=== PATIENT | female | born 1935 | race Caucasian/White ===

== ENCOUNTER 2016-12-02 11:09 | Day surgery (SDC) | payer MEDICARE ==
--- NOTE | ~2016-12-02 | EGD ---
EGD REPORT [facility] [address] [address] NAME: YAO VASQUES : 31 STATUS : REG [facility]#: [id number] AGE: 81 ADM/REG DATE : 12/02/16 MR#: [id number] REPORT SERV DATE: 12/02/16 DICTATED BY: ROZINA VILLATORO DATE: 12/02/16 REPORT STATUS : Draft [facility]: [facility] DATE: 12/02/16 Pulmonology Patient Name: Yao Vasques. Procedure Date: 12/02/2016 2:05 PM Date of : 1935 Attending MD: CHARLES VILLATORO MD Procedure Date No Time: 12/02/2016 Procedure: EBUS Indications: RUL lung lesion, mediastinal adenopathy, history of adenocarcinoma s/p SBRT Providers: CHARLES VILLATORO MD Referring MD: ZORAN TORRES MD Medicines: Lidocaine 2% 20 mL Complications: No immediate complications Procedure: Pre-Anesthesia Assessment: - A History and Physical has been performed. Patient meds and allergies have been reviewed. The risks and benefits of the procedure and the sedation options and risks were discussed with the patient. All questions were answered and informed consent was obtained. Patient identification and proposed procedure were verified prior to the procedure by the physician and the nurse in the pre-procedure area in the procedure room. Mental Status Examination: normal. Respiratory Examination: clear to auscultation. CV Examination: normal and RRR, no murmurs, no S3 or S4. ASA Grade Assessment: IV - A patient with severe systemic disease that is a constant threat to life. After reviewing the risks and benefits, the patient was deemed in satisfactory condition to undergo the procedure. The anesthesia plan was to use general anesthesia. Immediately prior to administration of medications, the patient was re-assessed for adequacy to receive sedatives. The heart rate, respiratory rate, oxygen saturations, blood pressure, adequacy of pulmonary ventilation, and response to care were monitored throughout the procedure. The physical status of the patient was re-assessed after the procedure. After obtaining informed consent, the Bronchoscope was introduced through the mouth, via the endotracheal tube (the patient was intubated for the procedure) and advanced to the tracheobronchial tree. the BF [id number] was introduced through the mouth, via the endotracheal tube (the patient was intubated for the procedure) and advanced to the tracheobronchial tree. The procedure was accomplished without difficulty. The EGD REPORT [address] [address] NAME: YAO VASQUES : [birth year] STATUS : REG [facility] PAT#: [id number] AGE: 81 ADM/REG DATE : 12/02/16 MR#: [id number] REPORT SERV DATE: 12/02/16 DICTATED BY: ROZINA VILLATORO DATE: 12/02/16 REPORT STATUS : Draft TRANSCRIBED BY: [facility] DATE: 12/02/16 patient tolerated the procedure well. Findings: The endotracheal tube is in good position. The visualized portion of the trachea is of normal caliber. The caden is sharp. The tracheobronchial tree was examined to at least the first subsegmental level. Bronchial mucosa and anatomy are normal; there are no endobronchial lesions, and no secretions. EBUS TBNA of lymph node level 2R x 4 passes for cytology EBUS TBNA of lymph node level 4R x 10 passes for cytology EBUS TBNA of lymph node level 11R x 4 passes for cytology Bronchoalveolar lavage was performed in the right upper lobe of the lung and sent for routine cytology. 60 mL of fluid were instilled. 30 mL were returned. The return was blood-tinged and cellular. Impression: Rapid On-Site Evaluation (VIKAS): Preliminary cytology is POSITIVE for NON SMALL CELL LUNG CANCER (final results are pending). Recommendation: - Await test results. - Chest X-ray post-procedure. - Follow up with referring physician. Attending Participation: I personally performed the entire procedure. CHARLES VILLATORO MD 12/02/2016 3:40 PM This report has been signed electronically. Number of Addenda: 0 Note Initiated On: 12/02/2016 2:05 PM [address] [address]
--- NOTE | ~2016-12-02 | CN ---
Consultation Report [place] [id number] [facility] [place] [place]. [address] NAME: YAO VASQUES : [birth year] STATUS : [facility]#: [id number] AGE: 81 ADM/REG DATE : 12/02/16 MR#: [id number] REPORT SERV DATE: 12/03/16 DICTATED BY: YURY VILLATORO DATE: 12/03/16 REPORT STATUS : Draft TRANSCRIBED BY: MODL DATE: 12/03/16 CONSULTATION DATE OF CONSULTATION: Dear Drs. Miguel Garcia and Clifford Rivera: Thank you for requesting my opinion regarding evaluation and management of Ms. Yao Vasques' new mediastinal lymphadenopathy and enlarging right-sided lung airspace opacity. Ms. 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 Rivera by SBRT with 4800 cGy in four fractions from 01/09/2011 to 01/14/2011. The patient was undergoing surveillance imaging, a PET/CT scan on 10/10/1999 that demonstrated post-radiation pneumonitis changes. Subsequent scans on 01/25/2014, 04/15/2014, and 10/16/2015 demonstrated irregular right upper lobe post- treatment fibrosis and emphysematous and CABG changes, however, the patient's most recent scan on 11/13/2016 demonstrated an enlarging right upper lobe lung mass as well as mediastinal lymphadenopathy, which were both FDG avid. The patient states that she has chronic shortness of breath, well localized to the chest, nonradiating, with no significant alleviating or exacerbating factors. She firmly denies any new symptoms or weight gain, weight loss, hemoptysis, chest pain, palpitations, nausea, vomiting, or pneumonia-like symptoms. REVIEW OF SYSTEMS: A detailed 14-point review of systems was completed. Pertinent positives and negatives are listed above. ALLERGIES: AZITHROMYCIN, IODINATED DIAGNOSTIC AGENTS, TETANUS IMMUNOGLOBULIN. HOME MEDICATIONS: Reviewed and located in the paper chart. PAST MEDICAL HISTORY: Includes, 1. COPD. 2. Iron deficiency anemia. 3. Coronary artery disease, status post CABG. 4. Acid reflux disease. PAST SURGICAL HISTORY: 1. Abdominal hysterectomy. 2. Allograft bypass coronary artery disease. 3. Bilateral knee replacements. 4. Biopsy of the thyroid. 5. Cholecystectomy. 6. SBRT as above. Consultation Report [facility] [address] [place]. [address] NAME: YAO VASQUES : 31 STATUS : [facility]#: [id number] AGE: 81 ADM/REG DATE : 12/02/16 MR#: [id number] REPORT SERV DATE: 12/03/16 DICTATED BY: YURY VILLATORO DATE: 12/03/16 REPORT STATUS : Draft TRANSCRIBED BY: DARLENE DATE: 12/03/16 SOCIAL HISTORY: The patient is , living with children. She has three children. She is a former two packs per day smoker. She quit approximately four years ago, but smoked for a total of 75-[id number]-cdfar. She denies any significant history of alcohol or illicit drug abuse. FAMILY HISTORY: Prostate cancer, lung cancer, and ovarian cancer. REVIEW OF SYSTEMS: A detailed 14-point review of systems was completed. Pertinent positives and negatives are listed above. PHYSICAL EXAMINATION: VITAL SIGNS: Reviewed and located in the paper chart. GENERAL: In no acute distress. Able to communicate in full paragraphs at a time. HEENT: Normocephalic, atraumatic. Pupils are equal, round, and reactive to light and accommodation. Posterior oropharynx is clear. NECK: No JVD. No LAD. Trachea midline. CARDIOVASCULAR: Regular rate and rhythm. S1 and S2 present. LUNGS: Coarse bilateral breath sounds. End-expiratory wheezes noted. ABDOMEN: Nontender, nondistended, soft. Positive bowel sounds. EXTREMITIES: No clubbing, cyanosis, or edema. SKIN: No new rashes, lesions, or ulcers. PSYCHIATRIC: Alert and oriented x3. Appropriate mood and affect. Appropriate insight and judgment. NEUROLOGIC: 5/5 strength in upper and lower extremities. Cranial nerves 2 through 12 are intact. Gait not tested. DTRs not performed. IMAGING: PET/CT scan was personally reviewed by me and I agree with the following interpretation: Increasing right upper lobe airspace opacity and new FDG-avid mediastinal lymphadenopathy at 2R and 4R. ASSESSMENT AND PLAN: Ms. Yao Vasques is a pleasant 81-year-old female with a significant past medical history of remote stage 1A lung cancer status post SBRT therapy by Dr. Clifford Rivera in 2010, who presents with an abnormal PET/CT scan demonstrating an enlarging right upper lobe airspace opacity as well as mediastinal lymphadenopathy. The patient has no symptoms of upper respiratory or pneumonia-like symptoms. Given her lack of constitutional symptoms, her history of lung cancer, and her heavy tobacco history, the clinical and radiographic presentation is most consistent with either recurrence or a new lung cancer. At this point, Ms. Yao Vasques needs an appropriate diagnostic intervention. We discussed in detail potential options including CT-guided needle biopsy, which resulted in pneumothorax and prior admission, thoracic surgical biopsy, which she is a poor candidate for an EBUS and navigation bronchoscopy. After careful discussion of the risks, benefits, and alternatives to each of these procedures, we agreed to proceed forward with EBUS and navigation bronchoscopy. Consultation Report [place] [id number] [facility] [place]. [address] NAME: YAO VASQUES : 33 STATUS : [facility]#: [id number] AGE: 81 ADM/REG DATE : 12/02/16 MR#: [id number] REPORT SERV DATE: 12/03/16 DICTATED BY: YURY VILLATORO DATE: 12/03/16 REPORT STATUS : Draft TRANSCRIBED BY: DARLENE DATE: 12/03/16 The patient is aware that the procedure is associated with potential life-threatening risks, including lung collapse, respiratory failure, and even . RECOMMENDATIONS: A summary of my recommendations are as follows: 1. Proceed with EBUS and navigation bronchoscopy. 2. Follow up with Dr. Miguel Garcia. 3. If the patient is found to have non-small cell lung cancer, we will obtain additional tissue for possible future molecular analysis. 4. If the patient is found to have lung cancer, I recommend that she obtain an MRI of the brain with and without contrast to complete staging. 5. I am uncertain as to whether or not she would be an appropriate candidate for radiation therapy to the mediastinum-defer to Dr. Rivera. Thank you for allowing me to participate in Ms. Yao Vasques' care. MACIE/DARLENE Yury Villatoro M.D. / [id number] CC: Nancie Castilloas, M.D.
[~2016-12-02 11:09] MED LIST: ACET500CAP PO; ADVIL PO; AQUASOL E50 UNT/ML PO; ASAB PO; ATEN25 PO; ATEN50 PO; BROVANA15 MCG INH; CALTRA600D PO; CEFT5 PO; COMBIVENT INH; COMBIVENT RESPIM4 GM INH; CRESTOR5 MG PO; DALIRESP500 MCG PO; DITRO5 PO; DUONEB INH; EZFE 200200 MG PO; FOLIC PO; HALF81 PO; KLOR-CON M2020 MEQ PO; L20 PO; L40 PO; L80 PO; LEVAQUIN750 MG PO; MAXZIDE PO; MUCINEX600 MG PO; MVI PO; NIRAVAM0.25 MG PO; NORCO1 TA1 PO; NORV5 PO; P1 PO; P10; P10 PO; P20 PO; P5 PO; PRILO PO; PROAIR HFA INH; PROVHFA INH; PULRESP.5 INH; PULRESP.5 PO; RESTORIL30 MG PO; SUCR PO; TESSALON200 MG PO; ULTRAM50 PO; VITAMIN E; VITE PO; VITEYES OR; VITEYES PO; X25 PO; ZANTAC150 MG PO; ZOL50 PO; ZOLOFT25 MG PO; [UNRECOGNIZED DRUG - OTHER] PO; [UNRECOGNIZED DRUG - OTHER] PO; [UNRECOGNIZED DRUG - OTHER] PO
[2016-12-02 11:49] LABS: BASOPHILS 0 %; EOSINOPHILS 0.3 %; EOSINOPHILS ABSOLUTE 0.05 10/3/uL (0.0-0.53); HEMATOCRIT 38.8 % (36.0-48.0); HEMOGLOBIN 12.1 g/dL (12.0-16.0); IMMATURE GRANULOCYTES 0.4 %; IMMATURE GRANULOCYTES ABSOLUTE 0.06 10/3/uL (0.0-0.11); LYMPHOCYTES 15.3 %; LYMPHOCYTES ABSOLUTE 2.24 10/3/uL (0.67-4.30); MEAN CORPUS HGB CONC 31.2 g/dL (32.0-36.0); MEAN CORPUSCULAR HEMOGLOB 25.4 pg (26.0-34.0); MEAN CORPUSCULAR VOLUME 81.5 fL (80-100); MEAN PLATELET VOLUME 9.6 fL (9.2-13.0); MONOCYTES 10.4 %; MONOCYTES ABSOLUTE 1.52 10/3/uL (0.21-1.20); NEUTROPHILS 73.6 %; NEUTROPHILS ABSOLUTE 10.75 10/3/uL (2.02-8.40); RED CELL COUNT 4.76 10/6/uL (4.0-5.6); WHITE BLOOD CELLS 14.6 10/3/uL (4.5-10.5)
[2016-12-02 11:51] LABS: MANUAL DIFF NO %; PLATELET COUNT 243 10/3/uL (150-400)
[2016-12-02 11:56] LABS: INTERNATIONAL NORMAL RATI 1.1 UNITS (-); PROTIME (NOT ORD) 14.1 SEC (12.0-14.5)
[2016-12-02 12:06] LABS: BUN (BLOOD UREA NITROGEN) 74 MG/DL (6-23); CALCIUM, SERUM 9.9 MG/DL (8.5-10.4); CHLORIDE, SERUM 94 MMOL/L (96-112); CO2 (CARBON DIOXIDE) 34 MMOL/L (24-34); CREATININE 1.76 MG/DL (0.55-1.02); GFR AFRICAN AMERICAN 30 ML/MIN (>=60); GFR NON AFRICAN AMERICAN 26 ML/MIN (>=60); GLUCOSE, SERUM 128 MG/DL (60-99); POTASSIUM, SERUM 3.1 MMOL/L (3.5-5.3); SODIUM, SERUM 136 MMOL/L (135-148)
== END 2016-12-02 19:44 | disposition home or self-care (01) ==
LOC: DMU 11:09
PROVIDERS: Anesthesiology; Internal Medicine
PROC: 07974ZX Drainage of Thorax Lymphatic, Percutaneous Endoscopic Approach, Diagnostic (ICD-10-PCS; principal; 2016-12-02 12:30)
PROC: 0B948ZX Drainage of Right Upper Lobe Bronchus, Via Natural or Artificial Opening Endoscopic, Diagnostic (ICD-10-PCS; 2016-12-02 12:30)
DX: C34.11 Malignant neoplasm of upper lobe, right bronchus or lung (principal); C77.1 Secondary and unspecified malignant neoplasm of intrathoracic lymph nodes; I10 Essential (primary) hypertension; K21.9 Gastro-esophageal reflux disease without esophagitis; K44.9 Diaphragmatic hernia without obstruction or gangrene; Z99.81 Dependence on supplemental oxygen; Z95.1 Presence of aortocoronary bypass graft; Z79.899 Other long term (current) drug therapy; Z79.52 Long term (current) use of systemic steroids; Z79.82 Long term (current) use of aspirin; Z79.891 Long term (current) use of opiate analgesic; Z88.1 Allergy status to other antibiotic agents; Z91.048 Other nonmedicinal substance allergy status; Z88.5 Allergy status to narcotic agent
CPT/HCPCS: 71010; 80048; 85025; 85610; 85730; 88112; 88172; 88173; 88305; 88344; 93005; C1725; J0360; J2405; J3010

== ENCOUNTER 2017-03-08 10:24 | Inpatient (IN) | payer MEDICARE ==
--- NOTE | ~2017-03-08 | CN ---
Consultation Report [place] [id number] [facility] [place]. [address] NAME: YAO GILL : 33 STATUS : [facility]M [facility]#: [id number] AGE: 81 ADM/REG DATE : 03/08/17 MR#: [id number] REPORT SERV DATE: 03/10/17 DICTATED BY: PRIYA LEES DATE: 03/09/17 REPORT STATUS : Draft TRANSCRIBED BY: DARLENE DATE: 03/09/17 CONSULTATION. DATE OF CONSULTATION: CHIEF COMPLAINT: Low back pain. HISTORY OF PRESENT ILLNESS: Yao Gill is a pleasant 81-year-old patient, who fell early in the morning of Friday about 02:00 a.m. when she was up getting some water, she injured her back. She has a history of a stage III non-small cell lung carcinoma, this is a recurrent problem. At any rate, she was admitted to the hospital with back pain, and imaging showed L1 compression fracture. Initially, I was told by the family that there was no interest in surgery, however, at this point, the patient does wish to consider kyphoplasty, due to her fairly refractory pain. She denies any leg symptoms. She has been scheduled for a CT and lumbar spine. PAST MEDICAL HISTORY: 1. Stage III non-small cell carcinoma, with bilateral lung disease, as well as peritracheal disease, and lymph node involvement. 2. COPD. 3. CAD. 4. Obstructive sleep apnea. 5. Heart failure. 6. Anxiety and pain. 7. History of recurrent falls. 8. Chronic renal disease. 9. Diabetes. PAST SURGICAL HISTORY: coronary artery bypass. ALLERGIES: TO CONTRAST DYE. FAMILY HISTORY: Hypertension. HOME MEDICATION: See MAR. Pertinent medications include atenolol, fluoxetine, heparin, insulin, aspirin, amlodipine, oxybutynin, pantoprazole, prednisone, roflumilast, Sucralfate, triamterene/hydrochlorothiazide. SOCIAL HISTORY: The patient is here with her daughter. Does not use tobacco. Lives at home. PHYSICAL EXAMINATION: VITAL SIGNS: Temperature 98.4 respiratory rate 14, pulse 71, blood pressure 125/60. GENERAL: Reveals a pleasant, alert woman, she is bit frail. MUSCULOSKELETAL: With log roll, I did check her spine, she has palpable and percussion Consultation Report [place] [id number] [facility] [place]. [address] NAME: YAO GILL : 33 STATUS : ADM IN PAT#: [id number] AGE: 81 ADM/REG DATE : 03/08/17 MR#: [id number] REPORT SERV DATE: 03/10/17 DICTATED BY: PRIYA LEES DATE: 03/09/17 REPORT STATUS : Draft TRANSCRIBED BY: MODL DATE: 03/09/17 tenderness at the upper lumbar spine. No scars or skin abnormalities. She has normal trunk and legs sensation in all dermatomes. 5-/5 hip flexors, quads, TA, EHL, and gastrocsoleus. I think the weakness is related to pain. She has normal reflex in her legs. Negative straight leg raise. Palpable pulses. IMAGING: Lumbar spine x-ray show what I count as an L1 superior endplate fracture, given that the L5 is a translational segment, certainly you could count this is an L2 as well, at any rate that is the only one that appears to be compressed. LABORATORY DATA: INR 1.1. Hematocrit 34.8, creatinine 1.15. IMPRESSION: Medically complicated 81-year-old woman, with coronary artery disease, as well as stage III lung cancer, who now has a L3 compression fracture. PLAN: 1. Continue assessment with MRI and CT. 2. The patient and her family strongly desire intervention in the form of kyphoplasty, but without general anesthesia, therefore, I will plan on kyphoplasty with conscious sedation as long as the anesthesiologist are okay with that awake. MARLA/DARLENE Priya Lees MD / [id number] CC: MD Miguel Boles II, M.D. Lindsay C Crawford, M.D.
--- NOTE | ~2017-03-08 | DS ---
Discharge Summary [facility] [address] [place]. [address] NAME: YAO GILL : 33 STATUS : DIS IN PAT#: [id number] AGE: 81 ADM/REG DATE : 03/08/17 MR#: [id number] REPORT SERV DATE: 03/15/17 DICTATED BY: GIDEON BASURTO DATE: 03/14/17 REPORT STATUS : Draft TRANSCRIBED BY: MODL DATE: 03/14/17 ADMISSION DATE: 03/08/2017 DISCHARGE DATE: 03/14/2017 DISCHARGE DIAGNOSES: 1. Acute L1 compression fracture, currently with TSLO brace. 2. Stage III lung cancer, non-small cell, with bilateral lung disease. 3. Chronic obstructive pulmonary disease. 4. Coronary artery disease. 5. Obstructive sleep apnea. 6. History of congestive heart failure. 7. Anxiety and pain. 8. Recurrent falls. 9. Type 2 diabetes mellitus. CONSULTANTS DURING THIS HOSPITALIZATION: Dr. Del Lees. INVASIVE PROCEDURES DONE DURING THIS HOSPITALIZATION: None. BRIEF HISTORY OF PRESENT ILLNESS: The patient is an 81-year-old female, who had a mechanical fall, suffered a compression fracture at home, so she was admitted. For detailed history and physical exam, please see note dictated by Dr. Gabe Olivia on 03/08/2017. HOSPITAL COURSE: After being admitted to the hospital, this patient was treated with pain medications, and Dr. Garcia saw the patient in courtesy consultation as well. There was no further chemotherapy to be done. This patient continued to improve. She had mild acute kidney injury, which resolved with IV hydration. She did have an exacerbation of her COPD. We gave her short course of IV steroids, and then reduced it back to 8 mg like she normally does at home. Her cancer remained stable. Dr. Lees saw the patient in consultation and discussed with the family that nonsurgical approach was the best because of her poor lungs, it would be difficult for her to tolerate anesthesia. The family was agreeable. We placed a TLSO brace on her and that seemed to improve the patient's pain. She also received IV narcotics as well as oral narcotics to better control her pain. Physical Therapy saw the patient in consultation and recommended inpatient rehab. Currently, this patient is doing well and we are sending her to rehab for further recovery and recuperation. Dr. Lees will see the patient in followup post rehab. DISCHARGE DISPOSITION: To rehab. DISCHARGE ACTIVITY: Per facility. DISCHARGE DIET: An 1800-calorie [employer] diet. DISCHARGE MEDICATIONS: Xanax 0.25 mg p.o. twice daily, Norvasc 5 mg p.o. once daily, aspirin 81 mg once daily, Tenormin 50 mg twice daily, Caltrate 600 mg p.o. twice daily, Prozac 20 mg once daily, Ditropan 5 mg once daily, Prilosec 20 mg once daily, Daliresp 500 mcg once Discharge Summary [place] [id number] [place]. [address] NAME: YAO GILL : 33 STATUS : DIS IN PAT#: [id number] AGE: 81 ADM/REG DATE : 03/08/17 MR#: [id number] REPORT SERV DATE: 03/15/17 DICTATED BY: GIDEON ABSURTO DATE: 03/14/17 REPORT STATUS : Draft TRANSCRIBED BY: DARLENE DATE: 03/14/17 daily, Carafate 1 mg p.o. before supper, temazepam 30 mg at bedtime, vitamin E 400 mg once every morning, Maxzide 75/50 mg half a tablet once daily, Lasix 20 mg twice daily, hydrocodone 5/325 half tablet p.o. twice daily p.r.n. for pain, prednisone 8 mg p.o. every morning, OxyContin SR 10 mg p.o. twice daily, Brovana 15 mcg inhalation twice daily, Nitrostat 0.4 sublingual p.r.n. for chest pain, Zofran 4 mg p.o. every four hours p.r.n., potassium 20 mEq p.o. twice daily, DuoNebs one neb four times daily p.r.n., Keytruda one dose IV every 21 days will be suspended during rehab and will follow up with Dr. Miguel Garcia post rehab. DISCHARGE FOLLOWUP: With Dr. Miguel Garcia post rehab. More than 35 minutes spent planning this patient's discharge, reconciling medications, signing all forms for rehab and discussing rehab care with the family, and documenting this discharge. FINA Gideon Basurto M.D. / [id number] CC: Nancie Priest M.D. James Allan Ulibarri, MD
--- NOTE | ~2017-03-08 | HP ---
History And Physical [place] [id number] [facility] [place]. [address] NAME: YAO GILL : 33 STATUS : ADM IN PAT#: [id number] AGE: 81 ADM/REG DATE : 03/08/17 MR#: [id number] REPORT SERV DATE: 03/08/17 DICTATED BY: ALEKSANDR MATA DATE: 03/08/17 REPORT STATUS : Draft TRANSCRIBED BY: MODL DATE: 03/08/17 DATE OF ADMISSION: 03/08/2017 REASON FOR ADMISSION: Mechanical fall. Primary care doctor appears to be unclear, sees Dr. Garcia for oncology needs and just started seeing Dr. Mann for nephrology needs. HISTORY OF PRESENT ILLNESS: This is an 81-year-old female. She unfortunately suffers from what appears to be stage III non-small cell lung cancer of the lung and is on Keytruda. Sees Dr. Garcia. It was thought that the disease is just located to the chest cavity thus far. The patient has known history of COPD, CAD, SIRS, SONG on 2 L oxygen at night, chronic diastolic heart failure, anxiety, pain. The patient comes in with known history recurrent falls. She seems to get lightheaded, as she goes from a lying to standing position. The patient also is attended by her daughter who thinks that may be the patient is taking too much pain medication resulting in possible falls. The patient recently had a fall in her kitchen, this was just proceeded by some lightheadedness and she fell on her back, and she was found on x-ray to have L2 compression fracture, still waiting for Radiology read. Family is concerned that may be malignancy associated fractures, pathologic fracture exacerbated by a mechanical fall. The patient states she has full range of motion of all of her extremities including hip flexion. The patient is a good historian. She denies any fevers, chills, nausea, vomiting, diarrhea, chest pain, or active shortness of breath. She says she has chronic shortness of breath at night. PAST MEDICAL HISTORY: See above. Also includes CKD, unclear baseline. The patient has a creatinine of 1.76 in early 11/2016. PAST SURGICAL HISTORY: See above. ALLERGIES: APPARENTLY CONTRAST DYE. HOME MEDICATIONS: See MAR. Continue what is relevant. FAMILY HISTORY: Hypertension at least in one parent. REVIEW OF SYSTEMS: Done, see HPI. Otherwise, negative. PHYSICAL EXAMINATION: VITAL SIGNS: Blood pressure 171/72, pulse 75, respirations 20, sats 97% room air. GENERAL: No acute distress. HEENT: PERRLA. No scleral icterus. CARDIOVASCULAR: Regular rate and rhythm. No murmur. History And Physical [place] [address] [place]. [address] NAME: YAO GILL : 33 STATUS : ADM IN PAT#: [id number] AGE: 81 ADM/REG DATE : 03/08/17 MR#: [id number] REPORT SERV DATE: 03/08/17 DICTATED BY: ALEKSANDR MATA DATE: 03/08/17 REPORT STATUS : Draft TRANSCRIBED BY: MODL DATE: 03/08/17 RESPIRATORY: Decreased breath sounds bibasilarly. ABDOMEN: Nontender and nondistended. Positive bowel sounds. EXTREMITIES: No edema. No ecchymosis. NEUROLOGIC: GCS 15. A and O x4 over 4. LABORATORY DATA: Labs are all pending. X-rays shows preliminary L2 compression fracture. ASSESSMENT: 1. Mechanical fall with L2 compression fracture, question pathologic with history of non- small cell lung cancer, stage III versus pure mechanical fall. That as a result, may need kyphoplasty with biopsy. 2. History of non-small cell lung cancer stage III, gets Ayleen, sees Dr. Garcia. 3. History of hypertension. 4. Chronic obstructive pulmonary disease. 5. History of coronary artery disease. PLAN: We will go ahead and admit this patient. CT to check the status of her cancer to see if it is not indeed confirmed to the prior confined to prior anatomic position. MRI her brain to assess for posterior circulation as she has recurrent balance issues. We will also get a CT without contrast of her lumbar spine, L2 compression fracture. Determine if there is any radiographic associated pathologic versus pure mechanical fall associated fracture as if she did have any pathologic malignancies associated fracture. She indeed would be stage IV. We would consult Dr. Garcia at that time. See rest of my orders. Tomorrow, at some point, we will need to evaluate her orthostatics, would be evaluated by Ortho Spine in the interim. All questions were answered. It took well over 60 minutes to do. [employer]. WST/MODL Aleksandr Mata DO / [id number] CC: DO Miguel Ratliff M.D.
[2017-03-08] MEDS ORDERED: NITROSTAT0.4 MG SL (12:27)
[2017-03-08] MEDS ORDERED: PROZAC PO (12:30)
[2017-03-08] MEDS ORDERED: ZOFRAN4 PO (12:31)
[2017-03-08] MEDS ORDERED: KEYTRUDA IV (12:33)
[2017-03-08 17:05] LABS: BASOPHILS 0.1 %; BASOPHILS ABSOLUTE 0.01 10/3/uL (0.0-0.16); EOSINOPHILS 0.4 %; EOSINOPHILS ABSOLUTE 0.06 10/3/uL (0.0-0.53); HEMATOCRIT 35.6 % (36.0-48.0); HEMOGLOBIN 10.8 g/dL (12.0-16.0); IMMATURE GRANULOCYTES 0.4 %; IMMATURE GRANULOCYTES ABSOLUTE 0.05 10/3/uL (0.0-0.11); LYMPHOCYTES 14.2 %; LYMPHOCYTES ABSOLUTE 1.96 10/3/uL (0.67-4.30); MEAN CORPUS HGB CONC 30.3 g/dL (32.0-36.0); MEAN CORPUSCULAR HEMOGLOB 25.7 pg (26.0-34.0); MEAN PLATELET VOLUME 9.8 fL (9.2-13.0); MONOCYTES 7.8 %; MONOCYTES ABSOLUTE 1.08 10/3/uL (0.21-1.20); NEUTROPHILS 77.1 %; NEUTROPHILS ABSOLUTE 10.64 10/3/uL (2.02-8.40); RBC DISTRIBUTION WIDTH 15.5 % (12.0-16.0); RED CELL COUNT 4.21 10/6/uL (4.0-5.6); WHITE BLOOD CELLS 13.8 10/3/uL (4.5-10.5)
[2017-03-08 17:07] LABS: MANUAL DIFF NO %; MEAN CORPUSCULAR VOLUME 84.6 fL (80-100); PLATELET COUNT 149 10/3/uL (150-400)
[2017-03-08 17:12] LABS: INTERNATIONAL NORMAL RATI 1.1 UNITS (-); PROTIME (NOT ORD) 14.3 SEC (12.0-14.5)
[2017-03-08 17:25] LABS: ALKALINE PHOSPHATASE 60 U/L (45-117); CALCIUM, SERUM 9.3 MG/DL (8.5-10.4); CHLORIDE, SERUM 95 MMOL/L (96-112); CO2 (CARBON DIOXIDE) 32 MMOL/L (24-34); CREATININE 1.53 MG/DL (0.55-1.02); GFR AFRICAN AMERICAN 36 ML/MIN (>=60); GFR NON AFRICAN AMERICAN 31 ML/MIN (>=60); GLOBULIN 3.1 G/DL (2.5-4.1); POTASSIUM, SERUM 3.4 MMOL/L (3.5-5.3); SGOT(AST) 13 U/L (5-40); SGPT(ALT) 22 U/L (5-65); SODIUM, SERUM 136 MMOL/L (135-148); TOTAL BILIRUBIN 0.6 MG/DL (0-1.2); TOTAL PROTEIN 6.2 G/DL (6.0-8.5); TROPONIN I <0.02 NG/ML (<0.05)
[2017-03-08 17:26] LABS: ALBUMIN 3.1 G/DL (3.5-5.0); BUN (BLOOD UREA NITROGEN) 59 MG/DL (6-23); GLUCOSE, SERUM 93 MG/DL (60-99)
[2017-03-08 17:38] LABS: PROCALCITONIN 0.09 ng/mL (<0.5)
[2017-03-09 06:04] LABS: BASOPHILS 0.1 %; BASOPHILS ABSOLUTE 0.01 10/3/uL (0.0-0.16); EOSINOPHILS 0.3 %; EOSINOPHILS ABSOLUTE 0.05 10/3/uL (0.0-0.53); HEMATOCRIT 34.8 % (36.0-48.0); HEMOGLOBIN 10.9 g/dL (12.0-16.0); IMMATURE GRANULOCYTES 0.4 %; IMMATURE GRANULOCYTES ABSOLUTE 0.07 10/3/uL (0.0-0.11); LYMPHOCYTES 4.6 %; LYMPHOCYTES ABSOLUTE 0.83 10/3/uL (0.67-4.30); MANUAL DIFF NO %; MEAN CORPUS HGB CONC 31.3 g/dL (32.0-36.0); MEAN CORPUSCULAR HEMOGLOB 26.2 pg (26.0-34.0); MEAN CORPUSCULAR VOLUME 83.7 fL (80-100); MEAN PLATELET VOLUME 10.2 fL (9.2-13.0); MONOCYTES 8.7 %; MONOCYTES ABSOLUTE 1.58 10/3/uL (0.21-1.20); NEUTROPHILS 85.9 %; NEUTROPHILS ABSOLUTE 15.68 10/3/uL (2.02-8.40); PLATELET COUNT 142 10/3/uL (150-400); RBC DISTRIBUTION WIDTH 15.8 % (12.0-16.0); RED CELL COUNT 4.16 10/6/uL (4.0-5.6); WHITE BLOOD CELLS 18.2 10/3/uL (4.5-10.5)
[2017-03-09 06:15] LABS: CALCIUM, SERUM 9.5 MG/DL (8.5-10.4); CHLORIDE, SERUM 96 MMOL/L (96-112); CO2 (CARBON DIOXIDE) 30 MMOL/L (24-34); CREATININE 1.15 MG/DL (0.55-1.02); GFR AFRICAN AMERICAN 51 ML/MIN (>=60); GFR NON AFRICAN AMERICAN 44 ML/MIN (>=60); GLUCOSE, SERUM 111 MG/DL (60-99); PHOSPHORUS, SERUM 3.2 MG/DL (2.5-4.5); SODIUM, SERUM 133 MMOL/L (135-148)
[2017-03-09 06:19] LABS: BUN (BLOOD UREA NITROGEN) 55 MG/DL (6-23)
[2017-03-10 06:46] LABS: BASOPHILS 0.1 %; BASOPHILS ABSOLUTE 0.01 10/3/uL (0.0-0.16); EOSINOPHILS 0.3 %; EOSINOPHILS ABSOLUTE 0.06 10/3/uL (0.0-0.53); HEMATOCRIT 35.4 % (36.0-48.0); HEMOGLOBIN 11.2 g/dL (12.0-16.0); IMMATURE GRANULOCYTES 0.4 %; IMMATURE GRANULOCYTES ABSOLUTE 0.08 10/3/uL (0.0-0.11); LYMPHOCYTES 12.2 %; LYMPHOCYTES ABSOLUTE 2.22 10/3/uL (0.67-4.30); MANUAL DIFF NO %; MEAN CORPUS HGB CONC 31.6 g/dL (32.0-36.0); MEAN CORPUSCULAR HEMOGLOB 26.7 pg (26.0-34.0); MEAN CORPUSCULAR VOLUME 84.3 fL (80-100); MEAN PLATELET VOLUME 10.1 fL (9.2-13.0); MONOCYTES 8.5 %; MONOCYTES ABSOLUTE 1.56 10/3/uL (0.21-1.20); NEUTROPHILS 78.5 %; NEUTROPHILS ABSOLUTE 14.32 10/3/uL (2.02-8.40); PLATELET COUNT 150 10/3/uL (150-400); RBC DISTRIBUTION WIDTH 15.4 % (12.0-16.0); WHITE BLOOD CELLS 18.3 10/3/uL (4.5-10.5)
[2017-03-10 06:59] LABS: CALCIUM, SERUM 9.7 MG/DL (8.5-10.4); CHLORIDE, SERUM 95 MMOL/L (96-112); CO2 (CARBON DIOXIDE) 30 MMOL/L (24-34); CREATININE 1.15 MG/DL (0.55-1.02); GFR AFRICAN AMERICAN 51 ML/MIN (>=60); GFR NON AFRICAN AMERICAN 44 ML/MIN (>=60); GLUCOSE, SERUM 113 MG/DL (60-99); PHOSPHORUS, SERUM 2.5 MG/DL (2.5-4.5); POTASSIUM, SERUM 3.5 MMOL/L (3.5-5.3); SODIUM, SERUM 131 MMOL/L (135-148)
[2017-03-10 07:00] LABS: BUN (BLOOD UREA NITROGEN) 41 MG/DL (6-23)
[2017-03-10 15:39] LABS: ALLENS TEST Pos; BE (BASE EXCESS) 5.5 MEQ/L (0 +/- 2.5); CARBOXYHEMOGLOBIN 0.7 % (0-3); DEVICE NC; HCO3 (ACTUAL BICARBONATE) 30.6 MEQ/L (23-27); HEMOBLOGIN CONTENT 12.1 G/DL (12-16); INSTRUMENT SERIAL # 11843; METHEMOGLOBIN 0.5 % (0-3); O2 CONTENT 16.6 VOL% (18-24); PCO2 (CO2 TENSION) 47 MMHG (35-45); PO2 (O2 TENSION) 105 MMHG (79-93); SAMPLE Arterial; pH 7.43 (7.37-7.43)
[2017-03-11 01:24] LABS: ASCORBIC ACID (UR NOT ORDER) 40 (NEG); BILIRUBIN, URINE NEGATIVE (NEG); KETONE, URINE TRACE MG/DL (NEG); LEUKOCYTE ESTERASE(NOT OR NEG (NEG); WBC (NOT ORDERED) (RFLEX) 1 (0-5)
[2017-03-11 05:11] LABS: BASOPHILS 0.1 %; BASOPHILS ABSOLUTE 0.01 10/3/uL (0.0-0.16); EOSINOPHILS 0.2 %; EOSINOPHILS ABSOLUTE 0.03 10/3/uL (0.0-0.53); HEMATOCRIT 34.3 % (36.0-48.0); HEMOGLOBIN 10.9 g/dL (12.0-16.0); IMMATURE GRANULOCYTES 0.4 %; IMMATURE GRANULOCYTES ABSOLUTE 0.06 10/3/uL (0.0-0.11); LYMPHOCYTES ABSOLUTE 1.15 10/3/uL (0.67-4.30); MEAN CORPUS HGB CONC 31.8 g/dL (32.0-36.0); MEAN CORPUSCULAR HEMOGLOB 26.9 pg (26.0-34.0); MEAN CORPUSCULAR VOLUME 84.7 fL (80-100); MEAN PLATELET VOLUME 10.1 fL (9.2-13.0); MONOCYTES ABSOLUTE 1.48 10/3/uL (0.21-1.20); NEUTROPHILS 83.3 %; NEUTROPHILS ABSOLUTE 13.74 10/3/uL (2.02-8.40); PLATELET COUNT 150 10/3/uL (150-400); RBC DISTRIBUTION WIDTH 15.7 % (12.0-16.0); RED CELL COUNT 4.05 10/6/uL (4.0-5.6); WHITE BLOOD CELLS 16.5 10/3/uL (4.5-10.5)
[2017-03-11 05:12] LABS: MANUAL DIFF NO %
[2017-03-11 05:21] LABS: BUN (BLOOD UREA NITROGEN) 40 MG/DL (6-23); CALCIUM, SERUM 9.5 MG/DL (8.5-10.4); CHLORIDE, SERUM 96 MMOL/L (96-112); CO2 (CARBON DIOXIDE) 29 MMOL/L (24-34); GFR AFRICAN AMERICAN 54 ML/MIN (>=60); GFR NON AFRICAN AMERICAN 46 ML/MIN (>=60); GLUCOSE, SERUM 113 MG/DL (60-99); PHOSPHORUS, SERUM 2.7 MG/DL (2.5-4.5); POTASSIUM, SERUM 3.3 MMOL/L (3.5-5.3); SODIUM, SERUM 133 MMOL/L (135-148)
[2017-03-12 04:28] LABS: ALLENS TEST Pos; BE (BASE EXCESS) 5.9 MEQ/L (0 +/- 2.5); CARBOXYHEMOGLOBIN 0.7 % (0-3); DEVICE NC; HCO3 (ACTUAL BICARBONATE) 30.6 MEQ/L (23-27); HEMOBLOGIN CONTENT 11.4 G/DL (12-16); INSTRUMENT SERIAL # 8083; METHEMOGLOBIN 0.2 % (0-3); O2 CONTENT 15.4 VOL% (18-24); OPERATOR ID 35390; PCO2 (CO2 TENSION) 45 MMHG (35-45); PO2 (O2 TENSION) 83 MMHG (79-93); SAMPLE Arterial; pH 7.45 (7.37-7.43)
[2017-03-12 06:39] LABS: BASOPHILS 0.1 %; BASOPHILS ABSOLUTE 0.01 10/3/uL (0.0-0.16); EOSINOPHILS 0.7 %; EOSINOPHILS ABSOLUTE 0.08 10/3/uL (0.0-0.53); HEMATOCRIT 32.9 % (36.0-48.0); HEMOGLOBIN 10.4 g/dL (12.0-16.0); IMMATURE GRANULOCYTES 0.3 %; IMMATURE GRANULOCYTES ABSOLUTE 0.04 10/3/uL (0.0-0.11); LYMPHOCYTES 11.8 %; MEAN CORPUS HGB CONC 31.6 g/dL (32.0-36.0); MEAN CORPUSCULAR HEMOGLOB 26.3 pg (26.0-34.0); MEAN CORPUSCULAR VOLUME 83.3 fL (80-100); MEAN PLATELET VOLUME 9.9 fL (9.2-13.0); MONOCYTES 11.9 %; MONOCYTES ABSOLUTE 1.42 10/3/uL (0.21-1.20); NEUTROPHILS 75.2 %; NEUTROPHILS ABSOLUTE 8.96 10/3/uL (2.02-8.40); PLATELET COUNT 146 10/3/uL (150-400); RBC DISTRIBUTION WIDTH 15.3 % (12.0-16.0); RED CELL COUNT 3.95 10/6/uL (4.0-5.6); WHITE BLOOD CELLS 11.9 10/3/uL (4.5-10.5)
[2017-03-12 06:40] LABS: MANUAL DIFF NO %
[2017-03-12 06:50] LABS: ALBUMIN 2.6 G/DL (3.5-5.0); BUN (BLOOD UREA NITROGEN) 39 MG/DL (6-23); CALCIUM, SERUM 10.7 MG/DL (8.5-10.4); CHLORIDE, SERUM 93 MMOL/L (96-112); CO2 (CARBON DIOXIDE) 30 MMOL/L (24-34); CREATININE 1.21 MG/DL (0.55-1.02); GFR AFRICAN AMERICAN 48 ML/MIN (>=60); GFR NON AFRICAN AMERICAN 41 ML/MIN (>=60); GLUCOSE, SERUM 88 MG/DL (60-99); PHOSPHORUS, SERUM 3.6 MG/DL (2.5-4.5); POTASSIUM, SERUM 3.5 MMOL/L (3.5-5.3); SODIUM, SERUM 133 MMOL/L (135-148)
[2017-03-13 05:36] LABS: BASOPHILS 0 %; EOSINOPHILS 0 %; HEMATOCRIT 31.5 % (36.0-48.0); HEMOGLOBIN 10.1 g/dL (12.0-16.0); IMMATURE GRANULOCYTES 0.5 %; IMMATURE GRANULOCYTES ABSOLUTE 0.03 10/3/uL (0.0-0.11); LYMPHOCYTES 8.9 %; LYMPHOCYTES ABSOLUTE 0.57 10/3/uL (0.67-4.30); MEAN CORPUS HGB CONC 32.1 g/dL (32.0-36.0); MEAN CORPUSCULAR HEMOGLOB 26.7 pg (26.0-34.0); MEAN CORPUSCULAR VOLUME 83.3 fL (80-100); MEAN PLATELET VOLUME 9.5 fL (9.2-13.0); MONOCYTES 1.7 %; MONOCYTES ABSOLUTE 0.11 10/3/uL (0.21-1.20); NEUTROPHILS 88.9 %; PLATELET COUNT 153 10/3/uL (150-400); RED CELL COUNT 3.78 10/6/uL (4.0-5.6)
[2017-03-13 05:37] LABS: WHITE BLOOD CELLS 6.4 10/3/uL (4.5-10.5)
[2017-03-13 05:38] LABS: MANUAL DIFF NO %
[2017-03-13 05:49] LABS: ALBUMIN 2.6 G/DL (3.5-5.0); BUN (BLOOD UREA NITROGEN) 39 MG/DL (6-23); CALCIUM, SERUM 11.1 MG/DL (8.5-10.4); CHLORIDE, SERUM 92 MMOL/L (96-112); CO2 (CARBON DIOXIDE) 28 MMOL/L (24-34); GFR AFRICAN AMERICAN 48 ML/MIN (>=60); GFR NON AFRICAN AMERICAN 42 ML/MIN (>=60); GLUCOSE, SERUM 121 MG/DL (60-99); PHOSPHORUS, SERUM 4.3 MG/DL (2.5-4.5); POTASSIUM, SERUM 4.5 MMOL/L (3.5-5.3); SODIUM, SERUM 130 MMOL/L (135-148)
[2017-03-14 06:48] LABS: BASOPHILS 0 %; EOSINOPHILS 0 %; HEMATOCRIT 32.1 % (36.0-48.0); HEMOGLOBIN 10.2 g/dL (12.0-16.0); IMMATURE GRANULOCYTES 0.4 %; IMMATURE GRANULOCYTES ABSOLUTE 0.05 10/3/uL (0.0-0.11); LYMPHOCYTES 10.6 %; LYMPHOCYTES ABSOLUTE 1.22 10/3/uL (0.67-4.30); MEAN CORPUS HGB CONC 31.8 g/dL (32.0-36.0); MEAN CORPUSCULAR HEMOGLOB 26.5 pg (26.0-34.0); MEAN CORPUSCULAR VOLUME 83.4 fL (80-100); MEAN PLATELET VOLUME 9.4 fL (9.2-13.0); MONOCYTES 9.4 %; MONOCYTES ABSOLUTE 1.08 10/3/uL (0.21-1.20); NEUTROPHILS 79.6 %; PLATELET COUNT 190 10/3/uL (150-400); RBC DISTRIBUTION WIDTH 14.8 % (12.0-16.0); RED CELL COUNT 3.85 10/6/uL (4.0-5.6)
[2017-03-14 06:49] LABS: MANUAL DIFF NO %; WHITE BLOOD CELLS 11.6 10/3/uL (4.5-10.5)
== END 2017-03-14 18:00 | DRG 552 ==
LOC: ER 10:24 → 4SO 14:11 → ENPENDDIS 14:11 → CANBEDREQ 17:36 → 4SO 03-14 18:00
PROVIDERS: Internal Medicine
DX: S32.019A Unspecified fracture of first lumbar vertebra, initial encounter for closed fracture (principal); N17.9 Acute kidney failure, unspecified; I50.32 Chronic diastolic (congestive) heart failure; E11.22 Type 2 diabetes mellitus with diabetic chronic kidney disease; C34.90 Malignant neoplasm of unspecified part of unspecified bronchus or lung; J44.9 Chronic obstructive pulmonary disease, unspecified; I25.10 Atherosclerotic heart disease of native coronary artery without angina pectoris; W18.30XA Fall on same level, unspecified, initial encounter; F41.9 Anxiety disorder, unspecified; G47.33 Obstructive sleep apnea (adult) (pediatric); Z99.81 Dependence on supplemental oxygen; I12.9 Hypertensive chronic kidney disease with stage 1 through stage 4 chronic kidney disease, or unspecified chronic kidney disease; N18.3 Chronic kidney disease, stage 3 (moderate)
CPT/HCPCS: 36600; 70551; 71010; 71250; 72100; 72148; 73522; 80048; 80053; 80069; 81001; 82570; 82805; 82962; 83036; 83605; 83615; 83735; 83880; 83935; 84100; 84132; 84145; 84300; 84443; 84484; 85025; 85610; 87449; 93005; 94640; 96365; 96375; 97116-GP; 97162-GP; 97530-GP; 99285; A9270-GY; G8978-CL-GP; G8979-CJ-GP; J0360; J1170; J1885; J1940; J2405; J2543; J2800; J2920